=== PATIENT | male | born 2000 | race Caucasian/White ===

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

== ENCOUNTER 2022-10-13 15:55 | Emergency (ER) | payer BC, OTHER ==
[2022-10-13 16:15] LABS: BASOPHILS % (AUTO) 0.4 %; EOSINOPHILS # (AUTO) 0.4 10^3/uL (0.0-0.7); EOSINOPHILS % (AUTO) 5.2 %; HCT - HEMATOCRIT 44.8 % (42.0-52.0); HGB - HEMOGLOBIN 15.1 g/dL (14.0-18.0); LYMPHOCYTES # (AUTO) 1.2 10^3/uL (1.5-3.5); LYMPHOCYTES % (AUTO) 18.4 %; MEAN CORPUSCULAR HEMOGLOBIN 30.4 pg (27.0-31.0); MEAN CORPUSCULAR HGB CONC 33.7 g/dL (32.0-36.0); MEAN CORPUSCULAR VOLUME 90.3 fL (80.0-94.0); MEAN PLATELET VOLUME 10.4 fL (7.4-11.4); MONOCYTES # (AUTO) 0.7 10^3/uL (0.0-1.0); MONOCYTES % (AUTO) 9.7 %; NEUTROPHILS # (AUTO) 4.5 10^3/uL (1.5-6.6); NEUTROPHILS % (AUTO) 66.2 %; PLT - PLATELET COUNT 199 10^3/uL (130-450); RED BLOOD COUNT 4.96 10^6/uL (4.70-6.10); RED CELL DISTRIBUTION WIDTH 11.8 % (12.0-15.0); WHITE BLOOD COUNT 6.7 x10^3/uL (4.8-10.8)
[2022-10-13 16:36] LABS: ALBUMIN 4.7 g/dL (3.2-5.5); ALBUMIN/GLOBULIN RATIO 1.7 (1.0-2.2); BILIRUBIN,TOTAL 1.1 mg/dL (0.2-1.0); CREATININE 1.2 mg/dL (0.6-1.2); POTASSIUM 3.7 mmol/L (3.5-5.0); TOTAL PROTEIN 7.5 g/dL (6.7-8.2)
[2022-10-13 19:13] LABS: BILIRUBIN,URINE NEGATIVE (NEGATIVE); GLUCOSE, URINE (UA) NEGATIVE (NEGATIVE); KETONES,URINE (UA) NEGATIVE (NEGATIVE); LEUKOCYTE ESTERASE, URINE NEGATIVE (NEGATIVE); NITRITE,URINE NEGATIVE (NEGATIVE); OCCULT BLOOD,URINE NEGATIVE (NEGATIVE); PH,URINE 6.5 PH (5.0-7.5); PROTEIN,URINE NEGATIVE (NEGATIVE); UROBILINOGEN,URINE 0.2 (NORMAL) E.U./dL (NORMAL)
[2022-10-13 19:17] LABS: CLARITY,URINE CLEAR (CLEAR)
--- NOTE | 2022-10-13 19:32 | ED Physician Documentation ---
History of Present Illness - Stated complaint Stated Complaint: ABDOMINAL PX - Chief complaint Chief Complaint: Abd Pain - Additonal information Additional information: 22-year-old male presents emergency department for evaluation of acute right lower quadrant abdominal pain that began about 1 PM while walking. It is focal nonradiating. Some nausea no vomiting. No urinary symptoms. No history of similar. Past medical history includes epilepsy. Last seizure greater than 1 year ago. Compliant with meds. History obtained from patient. Good historian Review of Systems Constitutional: reports: Reviewed and negative Nose: reports: Reviewed and negative Throat: reports: Reviewed and negative Cardiac: reports: Reviewed and negative Respiratory: reports: Reviewed and negative GI: reports: Abdominal Pain, Nausea. denies: Vomiting : reports: Reviewed and negative PD PAST MEDICAL HISTORY - Past Surgical History Past Surgical History: No - Present Medications Home Medications: Ambulatory Orders Medication Instructions Recorded Confirmed Zonisamide 100 mg PO DAILY 10/13/22 10/13/22 - Allergies Allergies/Adverse Reactions: Allergies Allergy/AdvReac Type Severity Reaction Status Date / Time No Known Drug Allergies Allergy Verified 10/13/22 16:02 - Social History Does the pt smoke?: No Smoking Status: Never smoker Does the pt drink ETOH?: No Does the pt have substance abuse?: No PD ED PE NORMAL - General General: Alert and oriented X 3, No acute distress - HEENT HEENT: PERRL - Neck Neck: Supple, no meningeal sign, No adenopathy - Cardiac Cardiac: RRR, No murmur - Respiratory Respiratory: No respiratory distress, Clear bilaterally - Abdomen Abdomen: Normal bowel sounds, Soft, Non distended. No: Non tender (Focal tenderness in the right lower quadrant. Equivocal McBurney's.) - Back Back: No CVA TTP, No spinal TTP - Derm Derm: Normal color, Warm and dry - Extremities Extremities: No deformity, No tenderness to palpate, Normal ROM s pain - Neuro Neuro: Alert and oriented X 3, registered nurse float pool 2-12 intact Eye Opening: Spontaneous Motor: Obeys Commands Verbal: Oriented GCS Score: 15 Results - Vitals Vitals: Vital Signs - 24 hr 10/13/22 15:59 Temperature 37.1 C Heart Rate 101 H Respiratory 16 Rate Blood Pressure 120/78 O2 Saturation 100 Oxygen O2 Source Room air - Labs Labs: Laboratory Tests 10/13/22 10/13/22 10/13/22 16:09 16:09 16:32 WBC 6.7 RBC 4.96 Hgb 15.1 Hct 44.8 MCV 90.3 MCH 30.4 MCHC 33.7 RDW 11.8 L Plt Count 199 MPV 10.4 Neut # (Auto) 4.5 Lymph # (Auto) 1.2 L [place] # (Auto) 0.7 Eos # (Auto) 0.4 Baso # (Auto) 0.0 Absolute Nucleated RBC 0.00 Nucleated RBC % 0.0 Sodium 133 L Potassium 3.7 Chloride 100 L Carbon Dioxide 23 Anion Gap 10.0 BUN 12 Creatinine 1.2 Estimated GFR (MDRD) 76 L Glucose 92 Calcium 9.0 Total Bilirubin 1.1 H AST 20 ALT 29 Alkaline Phosphatase 81 Total Protein 7.5 Albumin 4.7 Globulin 2.8 Albumin/Globulin Ratio 1.7 Lipase 33 Urine Color YELLOW Urine Clarity CLEAR Urine pH 6.5 Ur Specific [place] 1.015 Urine Protein NEGATIVE Urine Glucose (UA) NEGATIVE Urine Ketones NEGATIVE Urine Occult Blood NEGATIVE Urine Nitrite NEGATIVE Urine Bilirubin NEGATIVE Urine Urobilinogen 0.2 (NORMAL) Ur Leukocyte Esterase NEGATIVE Ur Microscopic Review NOT INDICATED Urine Culture Comments NOT INDICATED PD Medical Decision Making - ED course Complexity details: reviewed results, re-evaluated patient, considered differential, d/w patient, d/w family ED course: Well-appearing 22-year-old male presents emergency department for evaluation of acute right lower quadrant abdominal pain that began about 1 PM after eating and while walking. No fevers or vomiting though he did endorse some nausea. Pain does not radiate. No recent falls or trauma. Here in the emergency department a CBC electrolytes and urinalysis were completed. My interpretation is that there are no acute worrisome findings. Specifically no leukocytosis worrisome electrolyte derangement or findings of infection or blood in the urine. Given the location of the pain a CT scan was completed to evaluate for surgical processes such as acute appendicitis or bowel obstruction. Reassuringly no acute surgical findings were seen on the CT of the abdomen. Incidental note was made of diverticulosis. At this time the cause of the abdominal pain is not clear though no acute abdomen is present at this time. Patient was discharged home with recommendations to follow-up with PCP. Emergent and worrisome return precautions otherwise discussed Departure - Departure Disposition: 01 Home, Self Care Clinical Impression: Right lower quadrant abdominal pain Condition: Stable Record reviewed to determine appropriate education?: Yes Instructions: ED Abdominal Pain Unkn Cause Male Comments: Pollo martinez are seen today in the emergency department because she developed some pain in the right lower quadrant of your abdomen this afternoon. Here in the emergency department we did obtain a CBC and electrolytes that showed no worrisome findings. Your urine showed no signs of infection or blood. We did do a CT scan to rule out acute appendicitis and there were no acute findings seen. Specifically no appendicitis bowel obstruction obvious kidney stones are noted. There is an incidental finding of diverticulosis which we discussed at the bedside. Because your abdominal pain is not clear at this time. I recommend clear liquid diet over the next 24 hours then slowly advance with bananas, rice, applesauce and toast. You can alternate taking ibuprofen 600 mg with a little bit of food or Tylenol 500 mg for discomfort. Reasons to return to the emergency department would include suddenly severe or different abdominal pain, development of any fevers, uncontrolled vomiting, black or bloody stools.
[2022-10-13] MEDS ORDERED: iohexoL-300 100 ML VIAL ONE (19:42)
--- NOTE | 2022-10-13 20:26 | CT Report ---
PROCEDURE: ABDOMEN/PELVIS W INDICATIONS: RLQ abd pain CONTRAST: 100mL Omni 300 TECHNIQUE: After the administration of intravenous contrast, 5 mm thick sections acquired from the diaphragms to the symphysis. 5 mm thick coronal and sagittal reformats were acquired. For radiation dose reducti on, the following was used: automated exposure control, adjustment of mA and/or kV according to richard ent size. COMPARISON: None. FINDINGS: Image quality: Excellent. Lung bases: Unremarkable. Heart: Heart is normal in size. ABDOMEN: Liver: No mass lesion. Gallbladder: Within normal limits without calcified gallstones. Biliary ducts: No biliary ductal dilatation. Pancreas: Unremarkable. Spleen: Normal in size. Adrenal Glands: No adrenal nodules. Kidneys and Ureters: No hydronephrosis. Stomach and Bowel: Stomach, small bowel loops, and colon are normal in caliber and wall thickness. T he appendix is normal in appearance. There is colonic diverticulosis without acute diverticular colit is. Peritoneum: No abnormal intraperitoneal fluid. No free air. Ventral Wall: No hernia. Abdominal Nodes: No retroperitoneal or mesenteric adenopathy by size criteria. Vessels: Aorta and inferior vena cava are normal in size. PELVIS: Pelvic Organs: Unremarkable. Bladder: Unremarkable. Pelvic Nodes: No enlarged lymph nodes. Miscellaneous: No inguinal hernias. Bones: Visualized osseous structures demonstrate no suspicious lesions. IMPRESSION: 1. No definite acute intra-abdominal abnormality. Specifically, no evidence of acute appendicitis. 2. No obstructive uropathy. Reviewed by: Chang Chandler MD on 10/13/2022 8:24 PM PST Approved by: Chang Chandler MD on 10/13/2022 8:24 PM PST Station ID: [id number]
[2022-10-13] MEDS: iohexoL-300 100 ML VIAL IVP ONE (21:00)
[2022-10-13 21:25] VITALS: BP 122/70
== END 2022-10-13 21:23 | disposition home or self-care (01) ==
LOC: ED 15:55
DX: R10.31 Right lower quadrant pain (principal)
CPT/HCPCS: 36415; 74177; 80053; 81003; 83690; 85025; 99284; Q9967; 81001; 87086

== ENCOUNTER 2024-02-11 15:49 | Outpatient (CLI) | payer BC | END 2024-02-11 23:59 | disposition critical access hospital (66) | LOC: EMS 15:49 | DX: R56.9 Unspecified convulsions (principal) | CPT/HCPCS: A0425; A0429 ==

== ENCOUNTER 2024-02-11 16:09 | Emergency (ER) | payer BC ==
[2024-02-11 16:24] VITALS: O2SAT 98
--- NOTE | 2024-02-11 16:57 | ED Physician Documentation ---
PD HPI SEIZURE - Stated complaint Stated Complaint: SZ - Chief complaint Chief Complaint: Neuro - History obtained from History obtained from: Patient, EMS - History of Present Illness Timing - onset: How many minutes ago (30), Today Witnessed: Witnessed Number of seizures: Single, Lasted minutes (1) Description of seizure activity: Generalized Injury during seizure: No: Fell, Head injury, Neck injury Associated symptoms: Headache History of seizures: Known seizure disorder Contributing factors: Other (he states he missed several doses of meds the past several days. Had timer/alarm on his phone to remind him of meds but got a new phone and had not reset the timer, so missed some. Does have the meds and refills available at home.). No: Low blood sugar, Fever Similar symptoms before: Diagnosis (seizure disorder, with last seizure about 1 1/2 year sago. Had been maintained on current meds pretty well.) Recently seen: Not recently seen Review of Systems Constitutional: denies: Fever, Chills Nose: denies: Rhinorrhea / runny nose, Congestion Throat: denies: Sore throat Respiratory: denies: Cough GI: denies: Vomiting, Diarrhea PD PAST MEDICAL HISTORY - Past Medical History Past Medical History: Yes Neuro: Seizure disorder - Past Surgical History Past Surgical History: No HEENT: Other - Present Medications Home Medications: Ambulatory Orders Medication Instructions Recorded Confirmed Zonisamide 400 mg PO DAILY 10/13/22 02/11/24 - Allergies Allergies/Adverse Reactions: Allergies Allergy/AdvReac Type Severity Reaction Status Date / Time No Known Drug Allergies Allergy Verified 02/11/24 16:13 - Social History Does the pt smoke?: No Smoking Status: Never smoker Does the pt drink ETOH?: No Does the pt have substance abuse?: No - POLST Patient has POLST: No PD ED PE NORMAL - Vitals Vital signs reviewed: Yes - General General: Alert and oriented X 3, No acute distress, Well developed/nourished - HEENT HEENT: Atraumatic - Neck Neck: Supple, no meningeal sign, No adenopathy - Cardiac Cardiac: RRR, No murmur - Respiratory Respiratory: Clear bilaterally - Derm Derm: Normal color, Warm and dry - Extremities Extremities: Normal ROM s pain - Neuro Neuro: Alert and oriented X 3, No motor deficit, Normal speech Results - Vitals Vitals: Vital Signs - 24 hr 02/11/24 02/11/24 02/11/24 16:14 16:30 17:32 Temperature 36.7 C Heart Rate 118 H 108 H 87 Respiratory 20 18 17 Rate Blood Pressure 115/57 L 127/68 117/80 O2 Saturation 98 98 98 Oxygen O2 Source Room air PD Medical Decision Making - ED course Complexity details: considered differential (Pt states unintentionally missed a few doses of meds the past several days due to getting new phone [place] dnot reset timer as reminder for his meds. No recent illness, change diet, use of alcohol nor other meds. He appears well. I considered but did not see need for labs/blood tests.), d/w patient, d/w family (father) Departure - Departure Disposition: 01 Home, Self Care Clinical Impression: Generalized seizure, Seizure disorder Condition: Stable Record reviewed to determine appropriate education?: Yes Instructions: ED Seizure Recurrent Comments: Regular food and fluids and hydration. Continue with your usual medications. F ollow-up as needed. Forms: PCP List Discharge Date/Time: 02/11/24 17:40
[2024-02-11] MEDS: KETOROLAC 30 MG/ML VIAL IVP STA (17:24)
[2024-02-11] MEDS: ACETAMINOPHEN 500 MG TABLET PO STA (17:24)
[2024-02-11 17:37] VITALS: BP 117/80
== END 2024-02-11 17:40 | disposition home or self-care (01) ==
LOC: EDUNIT# → ED 16:09
DX: G40.409 Other generalized epilepsy and epileptic syndromes, not intractable, without status epilepticus (principal); Z79.899 Other long term (current) drug therapy
CPT/HCPCS: 36415; 96374; 99283; A9270